=== PATIENT | male | born 1985 | race African-American/Black ===

== ENCOUNTER 2017-04-08 04:42 | Emergency (ER) | payer OTHER ==
[~2017-04-08] VITALS: Ht 175.3 cm; Wt 90.7 kg
[2017-04-08 05:17] VITALS: BP 152/92
[2017-04-08] MEDS ORDERED: TETRACAINE 0.5% OPHTH SOLUTION 4ML BOTTLE. ONE (05:25)
--- NOTE | 2017-04-08 05:25 | PHYS DOC ---
Past Medical History Past Medical History: No Pertinent History Past Surgical History: Other Additional Past Surgical Histo: LEFT ACHILLES Adult General Chief Complaint Chief Complaint: FOREIGN BODY/EYES HPI HPI Patient is a 32 year old female who comes with complaints of eye irritation on the right side after blowing some dust, some of the dust blew back into his eye and ever since then he feels itchy and feels like he has something in it. Patient denies any visual changes or pain. There was no direct trauma. Review of Systems Review of Systems Constitutional: Denies fever or chills [] Eyes: Denies change in visual acuity. Itchiness and tearing of the right eye HENT: Denies nasal congestion or sore throat [] Respiratory: Denies cough or shortness of breath [] Cardiovascular: No chest injury GI: Denies abdominal injury : Denies dysuria or hematuria [] Musculoskeletal: Denies back pain or joint pain [] Integument: Denies rash or skin lesions [] Neurologic: Denies headache, focal weakness or sensory changes [] Current Medications Current Medications Current Medications Medications (Trade) Dose Ordered Sig/Jareth Start Time Stop Time Status Last Admin Dose Admin Tetracaine HCl (Tetracaine) 2 drop 1X ONCE 04/08/17 05:30 04/08/17 05:31 UNV Allergies Allergies Allergies Coded Allergies Type Severity Reaction Last Updated Verified No Known Drug Allergies 04/08/17 No Physical Exam Physical Exam Constitutional: Well developed, well nourished, no acute distress, non-toxic appearance. [] HENT: Normocephalic, atraumatic, Eyes: EOMI, injected conjunctiva and tearing eye right side, no discharge. No foreign body visualized. Neck: Normal range of motion, trachea like midline. No stridor. [] Cardiovascular:Heart rate regular rhythm, no murmur [] Lungs & Thorax: A tachypnea Abdomen: No distention Skin: Warm, dry, no erythema, no rash. [] Back: No tenderness, no CVA tenderness. [] Extremities: No tenderness, ROM intact, no edema. [] Neurologic: Alert and oriented X 3, normal motor function, no focal deficits noted. [] Psychologic: Affect normal, judgement normal, mood normal. [] Current Patient Data Vital Signs Vital Signs Date Time Temp Pulse Resp B/P (MAP) Pulse Ox O2 Delivery O2 Flow Rate FiO2 10/1/17 05:17 98.7 65 16 99 Room Air 98.7 EKG EKG [] Radiology/Procedures Radiology/Procedures [] Course & Med Decision Making Course & Med Decision Making Pertinent Labs and Imaging studies reviewed. (See chart for details) Patient just blew dust, no direct trauma. Inspection does not reveal dirt or FB. Will irrigate. [] Dragon Disclaimer Dragon Disclaimer This electronic medical record was generated, in whole or in part, using a voice recognition dictation system. Departure Departure Impression: Primary Impression: Irritation of right eye Disposition: HOME, SELF-CARE Condition: STABLE Referrals: NO PCP (PCP) Patient Instructions: Conjunctivitis, Chemical Additional Instructions: Please follow-up with your PCP oral one of the clinics in the list provided to you for recheck and reevaluation in 2 days. If she statics recent vision changes or pain please see an human resources support specialist immediately. Please apply Lacri- Lube to the right eye 3 times daily for the next 3 days Douglas QUIÑONES MD Apr 08, 2017 05:25
[2017-04-08] MEDS: TETRACAINE 0.5% OPHTH SOLUTION 4ML BOTTLE. OD ONE (05:30)
== END 2017-04-08 06:20 | disposition home or self-care (01) ==
LOC: ER 04:42
DX: H57.8 Other specified disorders of eye and adnexa (principal)
CPT/HCPCS: 99282

== ENCOUNTER 2017-08-27 15:32 | Emergency (ER) | payer OTHER ==
[2017-08-27] MEDS: MAGNESIUM CITRATE 296 ML SOLUTION. PO ×2 (17:22)
[2017-08-27] MEDS: MORPHINE SULFATE 10 MG/ML VIAL. IM ×2 (17:23)
[2017-08-27] MEDS: DEXAMETHASONE SOD PHOS 20 MG/5 ML VIAL. IM ×2 (17:25)
[2017-08-27] MEDS: KETOROLAC 60 MG/2 ML INJ. IM ×2 (17:25)
== END 2017-08-27 17:30 | disposition home or self-care (01) ==
LOC: ER 15:32
DX: B37.9 Candidiasis, unspecified (principal); K59.00 Constipation, unspecified; R10.9 Unspecified abdominal pain
CPT/HCPCS: 96372; 99284-25; J1100; J1885; J2270

== ENCOUNTER → 2019-03-19 | Outpatient (CLI) | payer OTHER ==
[2017-08-27 16:10] VITALS: BP 183/108
[2019-03-19 15:50] LABS: CALCIUM 9.6 mg/dL (8.5-10.1); CREATININE 1.2 mg/dL (0.7-1.3); GFR 83.9; POTASSIUM 4.1 mmol/L (3.5-5.1)
[2019-03-19 15:51] LABS: CHOLESTEROL/HDL RATIO 4.5
== END | disposition home or self-care (01) ==
LOC: LAB 15:07
PROVIDERS: ATTEND Internal Medicine
DX: Z13.220 Encounter for screening for lipoid disorders (principal); I10 Essential (primary) hypertension
CPT/HCPCS: 36415; 80048; 80061

== ENCOUNTER → 2019-04-09 | Outpatient (CLI) | payer OTHER ==
[2017-08-27 16:10] VITALS: BP 183/108
--- NOTE | 2019-04-09 13:50 | CARD ---
MR#: [id number] Date of Study: 04/09/2019 Ordering Physician: CLAYTON CONNELL, Referring Physician: CLAYTON CONNELL, Tech: Ronda Park RDCS APPROVED REPORT EXAM: Two-dimensional and M-mode echocardiogram with Doppler and color Doppler. Other Information Quality : Good INDICATION Hypertension/HCVD 2D DIMENSIONS RVDd2.7 (2.9-3.5cm)Left Atrium(2D)3.1 (1.6-4.0cm) IVSd0.7 (0.7-1.1cm)Aortic Root(2D)2.7 (2.0-3.7cm) LVDd4.8 (3.9-5.9cm)LVOT Diameter1.9 (1.8-2.4cm) PWd0.7 (0.7-1.1cm)LVDs3.0 (2.5-4.0cm) FS (%) 38.2 %SV73.8 ml LVEF(%)60.0 (>50%) Aortic Valve AoV Peak Shyam.133.6cm/sAoV VTI20.7cm AO Peak GR.7.1mmHgLVOT Peak Shyam.122.0cm/s AO Mean GR.4mmHgAVA (VMAX)2.72cm2 RENATA (VTI)3.30cm2 Mitral Valve MV E Gumqwcnh77.9cm/sMV DECEL QCXP606zn MV A Qeltppex89.0cm/sE/A Ratio1.2 Tricuspid Valve TR P. Dammngxs971ac/sRAP VMPNCJSY2wrUm TR Peak Gr.40rqXwKAFZ82jtIf Pulmonary Vein S1 Nneepfyq04.9cm/sD2 Ypmqtjom61.5cm/s LEFT VENTRICLE The left ventricle is normal size. There is normal left ventricular wall thickness. The left ventricu lar systolic function is normal. The Ejection Fraction is 55-60%. There is normal LV segmental wall m otion. The left ventricular diastolic function and filling is normal for age. RIGHT VENTRICLE The right ventricle is normal size. The right ventricular systolic function is normal. ATRIA The left atrium size is normal. The right atrium size is normal. The interatrial septum is intact wit h no evidence for an atrial septal defect or patent foramen ovale as noted on 2-D or Doppler imaging. AORTIC VALVE The aortic valve is normal in structure and function. Doppler and Color Flow revealed no significant aortic regurgitation. There is no significant aortic valvular stenosis. MITRAL VALVE The mitral valve is normal in structure and function. There is no evidence of mitral valve prolapse. There is no mitral valve stenosis. Doppler and Color Flow revealed no mitral valve regurgitation note d. TRICUSPID VALVE The tricuspid valve is normal in structure and function. Doppler and Color Flow revealed trace tricus pid regurgitation. The PA pressure was estimated at 17 mmHg. There is no tricuspid valve stenosis. PULMONIC VALVE The pulmonic valve is not well visualized. Doppler and Color Flow revealed trace pulmonic valvular re gurgitation. There is no pulmonic valvular stenosis. GREAT VESSELS The aortic root is normal in size. The ascending aorta is normal in size. The IVC is normal in size a nd collapses >50% with inspiration. PERICARDIAL EFFUSION There is no evidence of significant pericardial effusion. Critical Notification Critical Value: No <Conclusion> The left ventricular systolic function is normal. The Ejection Fraction is 55-60%. There is normal LV segmental wall motion. Trace tricuspid regurgitation. The PA pressure was estimated at 17 mmHg. There is no evidence of significant pericardial effusion. Signed by : Rhys Barrera, Electronically Approved : 04/09/2019 13:50:13
== END | disposition home or self-care (01) ==
LOC: ECHO 12:45
PROVIDERS: ATTEND Internal Medicine
DX: I10 Essential (primary) hypertension (principal); F32.9 Major depressive disorder, single episode, unspecified; R68.89 Other general symptoms and signs
CPT/HCPCS: 93306

== ENCOUNTER 2019-08-23 07:00 | Emergency (ER) | payer OTHER ==
[~2019-08-23] VITALS: Ht 177.8 cm; Wt 95.0 kg
[2019-08-23 07:21] VITALS: BP 120/64
--- NOTE | 2019-08-23 07:54 | PHYS DOC ---
Past Medical History Past Medical History: Depression, Hypertension Past Surgical History: Tonsillectomy Additional Past Surgical Histo: LEFT ACHILLES Smoking Status: Never Smoker Alcohol Use: None Drug Use: None Adult General Chief Complaint Chief Complaint: COUGH HPI HPI Patient is a 34 year old male presenting with chief complaint of cough sore throat and runny nose for over a week now. He said he would not even come in really for himself except his son was vomiting so he decided also checked in as he brought his son in for evaluation. No fever symptoms are moderate they're about the same as when they started no travel out of this area recently Review of Systems Review of Systems Integument: Denies rash or skin lesions [] Neurologic: Denies headache, focal weakness or sensory changes [] Endocrine: Denies polyuria or polydipsia [] All other systems were reviewed and found to be within normal limits, except as documented in this note. Allergies Allergies Allergies Coded Allergies Type Severity Reaction Last Updated Verified No Known Drug Allergies 04/08/17 No Physical Exam Physical Exam Constitutional: Well developed, well nourished, no acute distress, non-toxic appearance. [] HENT: Normocephalic, atraumatic, bilateral external ears normal, oropharynx moist, no oral exudates, nose normal. [] Eyes: PERRLA, EOMI, conjunctiva normal, no discharge. [] Neck: Normal range of motion, no tenderness, supple, no stridor. [] Cardiovascular:Heart rate regular rhythm, no murmur [] Lungs & Thorax: Bilateral breath sounds clear to auscultation [] Abdomen: Bowel sounds normal, soft, no tenderness, no masses, no pulsatile masses. [] Skin: Warm, dry, no erythema, no rash. [] Back: No tenderness, no CVA tenderness. [] Extremities: No tenderness, no cyanosis, no clubbing, ROM intact, no edema. [] Neurologic: Alert and oriented X 3, normal motor function, normal sensory fu nction, no focal deficits noted. [] Psychologic: Affect normal, judgement normal, mood normal. [] Current Patient Data Vital Signs Vital Signs Date Time Temp Pulse Resp B/P (MAP) Pulse Ox O2 Delivery O2 Flow Rate FiO2 08/23/19 07:21 99.1 95 14 120/64 (82) 98 Room Air 99.1 EKG EKG [] Radiology/Procedures Radiology/Procedures [] Course & Med Decision Making Course & Med Decision Making Pertinent Labs and Imaging studies reviewed. (See chart for details) []URI symptoms for over a week now. Influenza on the differential but is out of the treatment window he is well-appearing lungs sound clear oxygenation normal oropharynx looks normal patient was reassured and discharged in stable condition Dragon Disclaimer Dragon Disclaimer This electronic medical record was generated, in whole or in part, using a voice recognition dictation system. Departure Departure Impression: Primary Impression: Cough Disposition: 01 HOME, SELF-CARE Condition: STABLE Patient Instructions: Cough, Adult, [id number] CARMINA RESENDEZ MD Aug 23, 2019 07:54
== END 2019-08-23 08:30 | disposition home or self-care (01) ==
LOC: ER 07:00
DX: J02.9 Acute pharyngitis, unspecified (principal); R05 Cough; I10 Essential (primary) hypertension; F32.9 Major depressive disorder, single episode, unspecified; Z90.89 Acquired absence of other organs; Z98.890 Other specified postprocedural states
CPT/HCPCS: 99281

== ENCOUNTER → 2020-01-16 | Outpatient (CLI) | payer OTHER | END | disposition home or self-care (01) | LOC: LAB 13:13 | PROVIDERS: ATTEND Internal Medicine Pulmonary Disease | DX: Z20.828 Contact with and (suspected) exposure to other viral communicable diseases (principal) | CPT/HCPCS: U0003-CS ==

== ENCOUNTER 2020-06-19 01:25 | Emergency (ER) | payer OTHER ==
[~2020-06-19] VITALS: Ht 175.3 cm; Wt 104.5 kg
[2020-06-19] MEDS ORDERED: PRED-220 PO (02:43)
--- NOTE | 2020-06-19 02:43 | ED.ADGEN ---
Past Medical History Past Medical History: Depression, Hypertension Past Surgical History: Tonsillectomy Additional Past Surgical Histo: LEFT ACHILLES Smoking Status: Never Smoker Alcohol Use: Occasionally Drug Use: None General Adult EDM: Chief Complaint: NECK PAIN HPI: HPI: Patient is a 35-year-old male who presents to the emergency room complaining of left-sided neck pain that radiates into his ear. He has been having this pain intermittently for 2 weeks. He saw his primary care physician who placed him on prednisone for 3 days for this and ordered an ultrasound. He gets his ultrasound in 2 weeks. He states that the pain got worse after he stopped the prednisone. He denies any other associated symptoms. He states he was never swabbed for coronavirus. Review of Systems: Review of Systems: Complete ROS is negative unless otherwise documented in HPI Current Medications: Current Medications Medications (Trade) Dose Ordered Sig/Jareth Start Time Stop Time Status Last Admin Dose Admin Dexamethasone Sodium Phosphate (Decadron) 10 mg 1X ONCE 06/19/20 03:00 06/19/20 03:01 Allergies: Allergies: Allergies Coded Allergies Type Severity Reaction Last Updated Verified No Known Drug Allergies 04/08/17 No Physical Exam: PE: General: Awake, alert, NAD. Well Nourished, well hydrated. Cooperative HEENT: Atraumatic, EOMI, PERRL, airway patent, moist oral mucosa, normal TM and the left ear Neck: Supple, trachea midline, lymphadenopathy in the left anterior cervical nodes, non Respiratory: CTA bilaterally, normal effort, no wheezing/crackles CV: RRR, no murmur, cap refill <2 GI: Soft, nondistended, nontender, no masses MSK: No obvious deformities Skin: Warm, dry, intact Neuro: A&O x3, speech NL, sensory and motor grossly intact, no focal deficits Psych: Normal affect, normal mood, not suicidal or homicidal Current Patient Data: Vital Signs: Vital Signs Date Time Temp Pulse Resp B/P (MAP) Pulse Ox O2 Delivery O2 Flow Rate FiO2 06/19/20 01:46 97.2 65 18 144/90 (108) 98 Room Air 97.2 EKG: EKG: [] Heart Score: Risk Factors: Risk Factors: DM, Current or recent (<one month) smoker, HTN, HLP, family history of CAD, obesity. Risk Scores: Score 0 - 3: 2.5% MACE over next 6 weeks - Discharge Home Score 4 - 6: 20.3% MACE over next 6 weeks - Admit for Clinical Observation Score 7 - 10: 72.7% MACE over next 6 weeks - Early Invasive Strategies Radiology/Procedures: Radiology/Procedures: [] Course & Med Decision Making: Course & Med Decision Making Pertinent Labs and Imaging studies reviewed. (See chart for details) Patient is a 35-year-old male who presents to the emergency room complaining of pain in his neck. Patient does have lymphadenopathy. This could be related to a viral infection. He does not have any kind of fever. Covid swab will be done. Patient does not have any obvious signs of infection. He does not have any difficulty with swallowing. There is no overlying skin changes. He has outpatient follow-up. We will start him on a prednisone taper. Patient's test results and vitals while in the ED were fully reviewed and discussed with the patient. Patient is stable and at this time does not need admission to the hospital. We have discussed strict return precautions and the importance of following up with their Primary Care Physician. Patient stated understanding and was given an opportunity to ask any questions. Patient is in agreement with plan. Dragon Disclaimer: Dragon Disclaimer: This electronic medical record was generated, in whole or in part, using a voice recognition dictation system. Departure Departure Impression: Primary Impression: Lymphadenopathy Disposition: 01 DC HOME SELF CARE/HOMELESS Condition: STABLE Referrals: CLAYTON CONNELL MD (PCP) Patient Instructions: Soft Tissue Injury of the Neck Scripts Prednisone (PREDNISONE ) 10 Mg Tablet 10 MG PO UD for PREDNISONE TAPER, #46 TAB 0 Refills Take 5 tablets by mouth once a day for 5 days, then take 4 tablets by mouth once a day for 2 days, then take 3 tablet by mouth once a day for 2 days, then take 2 tablet by mouth once a day for 2 days, then take 1 tablet by mouth once a day for 2 days, then stop Prov: LIZZY CUBA MD 06/19/20 LIZZY CUBA MD Jun 19, 2020 02:43
[2020-06-19] MEDS ORDERED: DEXAMETHASONE SOD PHOS 20 MG/5 ML VIAL. PO ONE (03:00)
[2020-06-19 03:15] VITALS: BP 145/88
--- NOTE | 2020-06-21 09:56 | NUR ---
IP: Informed pt of negative COVID results. Pt verbalized understanding.
== END 2020-06-19 03:15 | disposition home or self-care (01) ==
LOC: ER 01:25
DX: R59.1 Generalized enlarged lymph nodes (principal); M54.2 Cervicalgia; Z20.818 Contact with and (suspected) exposure to other bacterial communicable diseases; I10 Essential (primary) hypertension; F32.9 Major depressive disorder, single episode, unspecified; Z90.89 Acquired absence of other organs; Z98.890 Other specified postprocedural states
CPT/HCPCS: 99283; C9803; J1100; U0003

== ENCOUNTER → 2020-08-04 | Outpatient (CLI) | payer OTHER ==
[~2020-08-04] MED LIST: PRED-220 PO
--- NOTE | 2020-08-04 09:53 | RAD ---
Limited ultrasound evaluation of the left neck 08/04/2020 left neck pain. Possible cervical lymphadeni tis COMPARISON STUDY: None Discussion: Limited ultrasound evaluation of the left neck was performed. Static images are submitted to PACS. Normal-appearing lymph nodes are noted in the submandibular region. No other focal sonograp hic abnormalities are identified. No other focal mass or abnormal fluid collection is seen. IMPRESSION: No sonographic evidence of acute abnormality is identified Electronically signed by: Adria Garcia MD (08/04/2020 9:50 AM) [id number]
--- NOTE | 2020-08-04 10:12 | RAD ---
INDICATION: Reason: lt side neck pain. dizziness / Spl. Instructions: / History: COMPARISON: None. TECHNIQUE: Color, grayscale and doppler ultrasound images obtained of the carotid system bilaterally. Percent stenosis is estimated using criteria that correlates with NASCET methodology. FINDINGS: Peak systolic velocities are as follows in cm/s: Right Carotid System: CCA: 129 ICA: 102 ICA/CCA Ratio 0.6 Left Carotid System: CCA: 125 ICA: 93 ICA/CCA Ratio 0.6 Vertebral arteries are antegrade bilaterally. Mild scattered plaque throughout the vasculature. Asymmetric velocity in the subclavian arteries measuring 217 cm/S on the left and 159 cm/S on the rig ht. Linear internal echoes and proximal internal carotid artery at left. IMPRESSION: * Linear internal echoes at proximal internal carotid artery on the left. The most likely cause is a rtifact or plaque but it may be helpful to obtain a CT or MRI angiogram to exclude focal dissection. Report called to the ordering provider's office at 10:07 AM on date of exam. * Asymmetric elevated velocity within the subclavian arteries which could be technical in nature but a site of narrowing is not excluded. Electronically signed by: Osei Tabares MD (08/04/2020 10:10 AM) [id number]
== END ==
LOC: US 10:28
PROVIDERS: ATTEND Internal Medicine
DX: M54.2 Cervicalgia (principal); I88.9 Nonspecific lymphadenitis, unspecified; R42 Dizziness and giddiness
CPT/HCPCS: 76536; 93880

== ENCOUNTER → 2020-08-19 | Outpatient (CLI) | payer OTHER ==
[~2020-08-19] MED LIST changes: +IOHEXOL 350 MG/ML 100 ML VIAL. IV ONE
--- NOTE | 2020-08-19 15:05 | RAD ---
Exam: CTA neck INDICATION: Abnormal ultrasound TECHNIQUE: Sequential axial images through the neck obtained following the administration of 100 mL o f Isovue-370 IV contrast. Sagittal and coronal reformatted images were reconstructed from the axial d mumtaz and reviewed. 3-D reformatted images were reconstructed from the axial data and reviewed. Comparisons: Ultrasound 08/04/2020 FINDINGS: Visualized portions of the thoracic aorta are unremarkable. Standard three-vessel aortic arch anatomy . Right common carotid artery is patent without evidence of stenosis, occlusion or aneurysm. Cervical s egment of the right internal carotid artery is patent without evidence of stenosis, occlusion or aneu rysm. Left common carotid artery is patent without evidence of stenosis, occlusion or aneurysm. Cervical se gment of the left internal carotid artery is patent without evidence of stenosis, occlusion or aneury sm. Right vertebral artery is patent to the basilar confluence without evidence of stenosis, occlusion or aneurysm. Left vertebral artery is patent to basilar confluence without evidence of stenosis, occlusion or aneu rysm. Visualized soft tissues are unremarkable. IMPRESSION: Patent cervical arterial vasculature without evidence of stenosis, occlusion or aneurysm. No evidence for dissection. Exposure: One or more of the following in the visualized dose reduction techniques were utilized for this examination: 1. Automated exposure control 2. Adjustment of the MA and/or KV according to patient size 3. Use of iterative of reconstructive technique Electronically signed by: Jaimie Johnson MD (08/19/2020 3:03 PM) [facility]
== END ==
LOC: CT 14:08
PROVIDERS: ATTEND Internal Medicine
DX: M54.2 Cervicalgia (principal); I77.1 Stricture of artery; I88.9 Nonspecific lymphadenitis, unspecified
CPT/HCPCS: 70498; Q9967